=== PATIENT | female | born 1935 | race Caucasian/White ===

== ENCOUNTER → 2016-12-06 | Outpatient (CLI) | payer MEDICARE, BC ==
--- NOTE | 2016-12-06 15:35 | RADRPT ---
PROCEDURE: XR pelvis/right hip. CLINICAL INDICATION: Hip pain TECHNIQUE: AP pelvis/AP and lateral right hip views performed COMPARISON: No prior studies are available for comparison. FINDINGS: There is mild bilateral hip osteoarthrosis. This is associated with joint space narrowing, subchondr al sclerosis and osteophytosis. There is diffuse osteopenia. No fractures or osseous lesions are i dentified. The soft tissues are unremarkable. IMPRESSION: Diffuse osteopenia. Mild bilateral hip osteoarthrosis RPTAT: [facility] .Jose Guadalupe Merida MD, MD Date Time Electronically viewed and signed by .Jose Guadalupe Merida MD, MD on 12/06/2016 15:35 .B/
== END | disposition home or self-care (01) ==
LOC: HKI 13:43
PROVIDERS: ATTEND Orthopaedic Surgery
DX: M70.61 Trochanteric bursitis, right hip (principal); M25.551 Pain in right hip; M16.0 Bilateral primary osteoarthritis of hip
CPT/HCPCS: 20610; 73502; G0463; J1030